=== PATIENT | male | born 1960 | race Caucasian/White ===

== ENCOUNTER 2019-03-17 14:25 | Outpatient (CLI) | payer OTHER | END 2019-03-17 23:59 | disposition home or self-care (01) | LOC: RAD 14:25 | PROVIDERS: ATTEND Nurse Practitioner | DX: D35.2 Benign neoplasm of pituitary gland (principal); R51 Headache | CPT/HCPCS: 70553; A9585 ==

== ENCOUNTER → 2020-02-12 | Outpatient (CLI) | payer OTHER ==
[~2020-02-12] MED LIST: GADOTERATE 10 MMOL/20 ML VIAL ONE
== END | disposition home or self-care (01) ==
LOC: RAD 08:40
PROVIDERS: ATTEND Nurse Practitioner Acute Care
DX: G93.89 Other specified disorders of brain (principal); J34.89 Other specified disorders of nose and nasal sinuses
CPT/HCPCS: 70553; A9575